=== PATIENT | male | born 1970 | race Asian ===

== ENCOUNTER 2020-10-23 12:42 | Emergency (ER) | payer MEDICAID ==
[~2020-10-23] VITALS: Ht 167.6 cm; Wt 70.5 kg
[2020-10-23] MEDS ORDERED: morphine 4 MG/ML inj SYRINge IM ONE (13:35)
[2020-10-23] MEDS ORDERED: ondansetron 4mg rapidly disintigrating tab PO ONE (13:35)
[2020-10-23] MEDS ORDERED: morphine 4 MG/ML inj SYRINge IV ONE (15:10)
[2020-10-23] MEDS ORDERED: ondansetron/PF 4mg/2ml inj IV ONE (15:30)
[2020-10-23] MEDS ORDERED: MIDAZolam 5mg/ml 2ml vial IV ONE (15:30)
[2020-10-23] MEDS ORDERED: fentaNYL/PF 50MCG/1 ML 2ML syringe IV ONE (15:30)
[2020-10-23] MEDS ORDERED: etomidate 2mg/ml inj. IV ONE (15:30)
[2020-10-23] MEDS ORDERED: POLY17PO10 PO (16:42)
[2020-10-23] MEDS ORDERED: DOCU-149 PO (16:42)
[2020-10-23 18:01] VITALS: BP 156/97
== END 2020-10-23 18:03 | disposition home or self-care (01) ==
LOC: ER 12:43
DX: K62.3 Rectal prolapse (principal); K92.1 Melena; Z79.899 Other long term (current) drug therapy
CPT/HCPCS: 74176; 94799; 96372; 96374; 96375; 99152; 99153; 99285; J2250; J2270; J2405; J3010; 94760

== ENCOUNTER 2022-10-02 21:26 | Inpatient (IN) | payer MEDICAID ==
[~2022-10-02] VITALS: Ht 167.6 cm; Wt 74.8 kg
[~2022-10-02 21:26] MED LIST: DOCU-149 PO
[2022-10-02 21:45] LABS: EOSINOPHILS # (AUTO) 0.1 X10'3 (0-0.9); LYMPHOCYTES # (AUTO) 2.9 X10'3 (1.1-4.8); WHITE BLOOD COUNT 6.5 X10'3 (4.5-11.0)
[2022-10-02 21:47] LABS: BASOPHILS % (AUTO) 0.4 % (0-1); EOSINOPHILS % (AUTO) 1.2 % (0-6); LYMPHOCYTES % (AUTO) 43.9 % (21-51); MEAN PLATELET VOLUME 8.2 FL (7.4-10.4); MONOCYTES # (AUTO) 0.5 X10'3 (0-0.9); MONOCYTES % (AUTO) 8.1 % (2-12); NEUTROPHILS % (AUTO) 46.4 % (42-75); PLATELET COUNT 399 X10'3 (140-440)
[2022-10-02 22:02] LABS: ALANINE AMINOTRANSFERASE 23 U/L (12-78); ALBUMIN 3.3 G/DL (3.4-5.0); ALBUMIN/GLOBULIN RATIO 0.8 (1.1-1.5); ALKALINE PHOSPHATASE 84 IU/L (46-116); ANION GAP 6 (8-16); ASPARTATE AMINO TRANSFERASE 11 U/L (10-37); BILIRUBIN,TOTAL 0.4 MG/DL (0.1-1.0); BLOOD UREA NITROGEN 14 MG/DL (7-18); BUN/CREATININE RATIO 12.2 (5.4-32.0); CALCIUM 8.3 MG/DL (8.5-10.1); CHLORIDE 107 MMOL/L (99-107); CREATININE 1.15 MG/DL (0.60-1.10); GLUCOSE 153 MG/DL (70-104); POTASSIUM 4.1 MMOL/L (3.5-5.1); SODIUM 141 MMOL/L (135-145); TOTAL CARBON DIOXIDE 27.9 MMOL/L (24-32); TOTAL PROTEIN 7.2 G/DL (6.4-8.2); eGFR 67 ML/MIN
[2022-10-02 22:24] LABS: HEMOGLOBIN 6.3 g/dl (14.0-17.9)
[2022-10-02 22:25] LABS: HEMATOCRIT 21.1 % (42.0-52.0); MEAN CORPUSCULAR HEMOGLOBIN 15.3 PG (27.0-31.0); MEAN CORPUSCULAR VOLUME 50.8 FL (78-98); RED BLOOD COUNT 4.16 X10'6 (4.70-6.10)
[2022-10-02 22:26] LABS: RED CELL DISTRIBUTION WIDTH 20.8 % (11.5-14.5)
[2022-10-02] MEDS ORDERED: normal saline 1000ml 1,000 ML IV ONE (22:35)
[2022-10-02 22:51] LABS: LIPASE 221 U/L (73-393); MAGNESIUM 2.2 MG/DL (1.5-2.4)
[2022-10-02] MEDS ORDERED: ASPI-1265 PO (22:58)
[2022-10-02 22:59] LABS: ETHANOL < 0.010 GM/DL (0.0-0.010)
[2022-10-02 23:11] LABS: APTT 23 SECONDS (22-32)
[2022-10-02 23:15] LABS: ANISOCYTOSIS 3+; PLATELET ESTIMATE NORMAL; TOTAL CELLS COUNTED 100
[2022-10-02] MEDS ORDERED: pantoprazole 40mg IV 80 MG in normal saline 100ml IV soln 100 ML IV ONE (23:15)
[2022-10-02 23:16] LABS: MICROCYTOSIS 3+
[2022-10-02 23:17] LABS: ELLIPTOCYTES 2+; HYPOCHROMASIA 3+; SCHISTOCYTES FEW; SMUDGE CELLS 1+
[2022-10-02 23:18] LABS: TEAR DROP CELLS FEW
[2022-10-02 23:28] LABS: ABSOLUTE RETICS # < 6000 /CUMM (23000-93000); RETICULOCYTE % (AUTO) 2.6 % (0.5-1.5)
[2022-10-03] VITALS (10 sets, daily range): BP systolic 108–176; BP diastolic 60–105
[2022-10-03] MEDS ORDERED: metoprolol tartrate 50mg tablet PO STA (00:34)
[2022-10-03] MEDS ORDERED: metoprolol tartrate 1mg/ml inj IV ONE (00:35)
[2022-10-03] MEDS ORDERED: mag hydrox/Alum hydrox/simeth 30ml oral suspension PO PRN (00:50)
[2022-10-03] MEDS ORDERED: potassium Cl 40MEQ/1/2NS 520ml 520 ML IV PRN (00:50)
[2022-10-03] MEDS ORDERED: ondansetron/PF 4mg/2ml inj IV PRN (00:50)
[2022-10-03] MEDS ORDERED: magnesium hydroxide 30ml (MOM) UD suspension PO PRN (00:50)
[2022-10-03] MEDS ORDERED: magnesium Cl slow-release 64mg tablet PO PRN (00:50)
[2022-10-03] MEDS ORDERED: potassium Cl 20 mEq SR tablet PO PRN ×2 (00:50)
[2022-10-03] MEDS ORDERED: magnesium 4gm in 100ml NS 100 ML IV PRN (00:50)
[2022-10-03] MEDS: normal saline 1000ml 1,000 ML IV SCH ×2 (00:52→20:51)
--- NOTE | 2022-10-03 05:47 | NUR ---
AM labs drawn and sent by display card writer.
[2022-10-03 06:10] LABS: MAGNESIUM 2.2 MG/DL (1.5-2.4)
[2022-10-03 06:35] LABS: BASOPHILS # (AUTO) 0.1 X10'3 (0-0.2); BASOPHILS % (AUTO) 0.8 % (0-1); EOSINOPHILS # (AUTO) 0.1 X10'3 (0-0.9); EOSINOPHILS % (AUTO) 1.9 % (0-6); HEMOGLOBIN 8.3 g/dl (14.0-17.9); LYMPHOCYTES # (AUTO) 2.9 X10'3 (1.1-4.8); LYMPHOCYTES % (AUTO) 38.8 % (21-51); MEAN CORPUSCULAR HEMOGLOBIN 17.6 PG (27.0-31.0); MEAN CORPUSCULAR HGB CONC 29.7 g/dL (33.0-36.5); MEAN CORPUSCULAR VOLUME 59.2 FL (78-98); MEAN PLATELET VOLUME 8.5 FL (7.4-10.4); MONOCYTES # (AUTO) 0.6 X10'3 (0-0.9); MONOCYTES % (AUTO) 7.9 % (2-12); NEUTROPHILS # (AUTO) 3.8 X10'3 (1.8-7.7); NEUTROPHILS % (AUTO) 50.6 % (42-75); PLATELET COUNT 374 X10'3 (140-440); RED BLOOD COUNT 4.72 X10'6 (4.70-6.10); RED CELL DISTRIBUTION WIDTH 30.7 % (11.5-14.5); WHITE BLOOD COUNT 7.6 X10'3 (4.5-11.0)
[2022-10-03] MEDS ORDERED: PERFLUTREN PROTEIN-A MICROSPHR (Optison) 0.22 MG/ML 3ML VIAL IV ONE (07:00)
[2022-10-03] MEDS: K and/or MAG REPLACEMENT MC SCH ×2 (08:00→19:01)
[2022-10-03] MEDS: docusate sod 100mg capsule PO SCH ×2 (08:32→20:48)
[2022-10-03] MEDS: aspirin 81mg tab.chew PO SCH (08:32)
[2022-10-03] MEDS ORDERED: iohexol 350MG/ML 100ml bottle IV ONE (14:10)
--- NOTE | 2022-10-03 14:41 | NUR ---
PAGER ID: [phone] MESSAGE: [id number] Candido Bloom' Did you want a new lipid panel or and ADD ON? lab is asking. Tasia 1940
[2022-10-03 15:24] LABS: CHOL/HDL RATIO 5.7 (0.00-4.99); CHOLESTEROL 250 MG/DL (0-200); HDL CHOLESTEROL 44 MG/DL (35-60); LDL CHOLESTEROL 170 MG/DL (50-100); TRIGLYCERIDES 216 MG/DL (20-135)
[2022-10-03] MEDS: acetaminophen 325mg tablet PO PRN (20:48)
[2022-10-04] VITALS (15 sets, daily range): BP systolic 104–150; BP diastolic 56–98
[2022-10-04 06:17] LABS: BASOPHILS % (AUTO) 0.7 % (0-1); EOSINOPHILS # (AUTO) 0.2 X10'3 (0-0.9); EOSINOPHILS % (AUTO) 2.8 % (0-6); HEMATOCRIT 28.5 % (42.0-52.0); HEMOGLOBIN 8.7 g/dl (14.0-17.9); LYMPHOCYTES # (AUTO) 2.7 X10'3 (1.1-4.8); LYMPHOCYTES % (AUTO) 39.8 % (21-51); MEAN CORPUSCULAR HEMOGLOBIN 17.8 PG (27.0-31.0); MEAN CORPUSCULAR HGB CONC 30.5 g/dL (33.0-36.5); MEAN CORPUSCULAR VOLUME 58.5 FL (78-98); MEAN PLATELET VOLUME 8.9 FL (7.4-10.4); MONOCYTES # (AUTO) 0.6 X10'3 (0-0.9); MONOCYTES % (AUTO) 8.1 % (2-12); NEUTROPHILS # (AUTO) 3.3 X10'3 (1.8-7.7); NEUTROPHILS % (AUTO) 48.6 % (42-75); PLATELET COUNT 373 X10'3 (140-440); RED BLOOD COUNT 4.87 X10'6 (4.70-6.10); RED CELL DISTRIBUTION WIDTH 30.3 % (11.5-14.5); WHITE BLOOD COUNT 6.9 X10'3 (4.5-11.0)
--- NOTE | 2022-10-04 06:25 | NUR ---
Problems reprioritized. Patient report given, questions answered & plan of care reviewed with JAN Francisco.
[2022-10-04 06:32] LABS: ALANINE AMINOTRANSFERASE 20 U/L (12-78); ALBUMIN 3.1 G/DL (3.4-5.0); ALBUMIN/GLOBULIN RATIO 0.8 (1.1-1.5); ALKALINE PHOSPHATASE 88 IU/L (46-116); ANION GAP 5 (8-16); ASPARTATE AMINO TRANSFERASE 21 U/L (10-37); BILIRUBIN,TOTAL 0.6 MG/DL (0.1-1.0); BLOOD UREA NITROGEN 21 MG/DL (7-18); BUN/CREATININE RATIO 19.8 (5.4-32.0); CALCIUM 8.5 MG/DL (8.5-10.1); CHLORIDE 106 MMOL/L (99-107); CREATININE 1.06 MG/DL (0.60-1.10); GLUCOSE 119 MG/DL (70-104); MAGNESIUM 2.1 MG/DL (1.5-2.4); SODIUM 139 MMOL/L (135-145); TOTAL CARBON DIOXIDE 27.6 MMOL/L (24-32); eGFR 74 ML/MIN
[2022-10-04 07:12] LABS: % IRON SATURATION 4 % (11-46); IRON 16 UG/DL (53-167); TOTAL IRON BINDING CAPACITY 434 UG/DL (259-388)
--- NOTE | 2022-10-04 07:43 | NUR ---
PAGER ID: [phone] MESSAGE: lashay hernandez [phone] re: francisca, po [phone],. pt requesting tylenol for headache, thank you
[2022-10-04] MEDS: docusate sod 100mg capsule PO SCH ×2 (07:49→20:47)
[2022-10-04] MEDS ORDERED: acetaminophen 325mg tablet PO PRN (07:50)
[2022-10-04] MEDS: K and/or MAG REPLACEMENT MC SCH ×2 (07:53→20:00)
[2022-10-04] MEDS: aspirin 81mg tab.chew PO SCH (08:00)
[2022-10-04 08:54] LABS: ANISOCYTOSIS 3+; MICROCYTOSIS 3+; PLATELET ESTIMATE NORMAL; TOTAL CELLS COUNTED 100
[2022-10-04 08:55] LABS: HYPOCHROMASIA 2+; POLYCHROMASIA FEW; SCHISTOCYTES FEW
[2022-10-04 08:56] LABS: ELLIPTOCYTES 1+
[2022-10-04] MEDS: normal saline 1000ml 1,000 ML IV SCH (10:10)
--- NOTE | 2022-10-04 10:40 | NUR ---
Student documentation: I have reviewed and agree with all interventions, assessments performed and documented by Maryam student nurse.
[2022-10-04] MEDS ORDERED: fentaNYL/PF 50MCG/1 ML 2ML syringe ONE (14:45)
[2022-10-04] MEDS ORDERED: MIDAZolam 1 MG/ML 5ML VIAL ONE (14:45)
[2022-10-04] MEDS ORDERED: LIDOcaine Viscous 15ml cup ONE (14:46)
--- NOTE | 2022-10-04 17:40 | NUR ---
pt independent with ADLs, voids in toilet. no stool sample yet. pt back from EGD, clear liquid diet ordered. will continue to monitor pt
[2022-10-04] MEDS: pantoprazole 40mg Tablet.DR PO SCH (20:47)
[2022-10-04] MEDS: acetaminophen 325mg tablet PO PRN (20:56)
[2022-10-04 22:18] LABS: OCCULT BLOOD STOOL NEGATIVE (Neg)
[2022-10-05] MEDS: normal saline 1000ml 1,000 ML IV SCH (02:50)
[2022-10-05 03:00] VITALS: BP 124/65
[2022-10-05 06:00] VITALS: BP 128/76
[2022-10-05 06:30] LABS: BASOPHILS % (AUTO) 0.5 % (0-1); EOSINOPHILS # (AUTO) 0.2 X10'3 (0-0.9); EOSINOPHILS % (AUTO) 2.3 % (0-6); HEMATOCRIT 28.4 % (42.0-52.0); HEMOGLOBIN 8.6 g/dl (14.0-17.9); LYMPHOCYTES # (AUTO) 2.2 X10'3 (1.1-4.8); LYMPHOCYTES % (AUTO) 31.1 % (21-51); MEAN CORPUSCULAR HEMOGLOBIN 17.6 PG (27.0-31.0); MEAN CORPUSCULAR HGB CONC 30.1 g/dL (33.0-36.5); MEAN CORPUSCULAR VOLUME 58.4 FL (78-98); MEAN PLATELET VOLUME 8.6 FL (7.4-10.4); MONOCYTES # (AUTO) 0.6 X10'3 (0-0.9); MONOCYTES % (AUTO) 8.8 % (2-12); NEUTROPHILS # (AUTO) 4.1 X10'3 (1.8-7.7); NEUTROPHILS % (AUTO) 57.3 % (42-75); PLATELET COUNT 345 X10'3 (140-440); RED BLOOD COUNT 4.87 X10'6 (4.70-6.10); RED CELL DISTRIBUTION WIDTH 30.6 % (11.5-14.5); WHITE BLOOD COUNT 7.1 X10'3 (4.5-11.0)
[2022-10-05 06:44] LABS: ALANINE AMINOTRANSFERASE 19 U/L (12-78); ALBUMIN 3.2 G/DL (3.4-5.0); ALBUMIN/GLOBULIN RATIO 0.8 (1.1-1.5); ALKALINE PHOSPHATASE 89 IU/L (46-116); ANION GAP 5 (8-16); ASPARTATE AMINO TRANSFERASE 16 U/L (10-37); BILIRUBIN,TOTAL 1.1 MG/DL (0.1-1.0); BLOOD UREA NITROGEN 13 MG/DL (7-18); BUN/CREATININE RATIO 13.8 (5.4-32.0); CALCIUM 8.5 MG/DL (8.5-10.1); CHLORIDE 104 MMOL/L (99-107); CREATININE 0.94 MG/DL (0.60-1.10); GLUCOSE 98 MG/DL (70-104); POTASSIUM 3.6 MMOL/L (3.5-5.1); SODIUM 138 MMOL/L (135-145); TOTAL CARBON DIOXIDE 29.2 MMOL/L (24-32); eGFR 85 ML/MIN
[2022-10-05] MEDS: docusate sod 100mg capsule PO SCH (07:13)
[2022-10-05] MEDS: pantoprazole 40mg Tablet.DR PO SCH (07:13)
[2022-10-05] MEDS: aspirin 81mg tab.chew PO SCH (07:13)
[2022-10-05] MEDS: K and/or MAG REPLACEMENT MC SCH (07:14)
[2022-10-05] MEDS ORDERED: PANT40SU2 PO (07:24)
[2022-10-05] MEDS ORDERED: clopidogrel 75mg tablet PO SCH (08:20)
[2022-10-05] MEDS ORDERED: atorvastatin 20mg tablet PO SCH (08:20)
[2022-10-05] MEDS ORDERED: metoprolol tartrate 25mg tablet PO SCH (08:20)
[2022-10-05 09:59] VITALS: BP 124/89
--- NOTE | 2022-10-05 12:39 | NUR ---
attempted to contact NEUROLOGY TEACHER x2 regarding discharge medications. no response. MD aware however she states only reccomendation is aspirin. charge nurse aware. will proceed with discharge
--- NOTE | 2022-10-05 13:02 | NUR ---
patient discharged in stable condition to home. belongings sent with pt. ivs removed tips intact no complications.pt eduated on discharge follow up/medication.
[2022-10-05] MEDS ORDERED: ATOR40TA PO (13:28)
[2022-10-05] MEDS ORDERED: CLOP-32 PO (13:28)
[2022-10-05] MEDS ORDERED: LOP25T PO (13:28)
[2022-10-06 19:35] LABS: A/G RATIO 0.8 (0.7-1.7); ALBUMIN 2.8 g/dL (2.9-4.4); BETA GLOBULIN 1.3 g/dL (0.7-1.3); GAMMA GLOBULIN 1.4 g/dL (0.4-1.8); GLOBULIN, TOTAL 3.7 g/dL (2.2-3.9); M-SPIKE Not Observed g/dL (Not Observed); PROTEIN, TOTAL, SERUM 6.5 g/dL (6.0-8.5)
== END 2022-10-05 13:02 | disposition home or self-care (01) | DRG 190 ==
LOC: ER 21:27 → ED HOLD 10-03 00:50 → ORTHO 4S 10-03 07:48
PROVIDERS: ADMIT Internal Medicine; ATTEND Internal Medicine
PROC: 30233N1 Transfusion of Nonautologous Red Blood Cells into Peripheral Vein, Percutaneous Approach (ICD-10-PCS; principal; 2022-10-03)
PROC: 0DB98ZX Excision of Duodenum, Via Natural or Artificial Opening Endoscopic, Diagnostic (ICD-10-PCS; 2022-10-04)
PROC: 0DB68ZX Excision of Stomach, Via Natural or Artificial Opening Endoscopic, Diagnostic (ICD-10-PCS; 2022-10-04)
DX: I21.4 Non-ST elevation (NSTEMI) myocardial infarction (principal); K26.4 Chronic or unspecified duodenal ulcer with hemorrhage; D50.9 Iron deficiency anemia, unspecified; E78.00 Pure hypercholesterolemia, unspecified; K29.71 Gastritis, unspecified, with bleeding; I10 Essential (primary) hypertension; I25.10 Atherosclerotic heart disease of native coronary artery without angina pectoris; Z79.82 Long term (current) use of aspirin; Z82.49 Family history of ischemic heart disease and other diseases of the circulatory system; Z95.5 Presence of coronary angioplasty implant and graft
CPT/HCPCS: 36415; 36430; 43239; 71045; 71275; 80053; 80061; 80320; 82272; 83540; 83550; 83690; 83735; 83880; 84132; 84155; 84165; 84484; 85007; 85025; 85045; 85610; 85730; 86885; 86900; 86901; 86920; 87081; 93005; 93306; 99152; 99285; A4620; C9113; G0378; J2250; J3010; J3490; J7030; P9016; Q9967

== ENCOUNTER 2023-01-10 06:29 | Day surgery (SDC) | payer MEDICAID ==
[~2023-01-10] VITALS: Ht 167.6 cm; Wt 77.3 kg
[~2023-01-10 06:29] MED LIST changes: +ASPI-1265 PO; +CLOP-32 PO; -DOCU-149 PO; +LOP25T PO; +PANT40SU2 PO
[2023-01-10 06:38] VITALS: BP 132/78
[2023-01-10] MEDS ORDERED: LOP25T PO (06:51)
[2023-01-10] MEDS ORDERED: LIDOcaine Viscous 15ml cup ONE (07:28)
[2023-01-10] MEDS ORDERED: fentaNYL/PF 50MCG/1 ML 2ML syringe ONE (07:28)
[2023-01-10] MEDS ORDERED: MIDAZolam 1 MG/ML 5ML VIAL ONE (07:28)
[2023-01-10 09:02] VITALS: BP 117/71
[2023-01-10 09:12] VITALS: BP 108/58
[2023-01-10 09:22] VITALS: BP 117/78
[2023-01-10 09:32] VITALS: BP 110/70
== END 2023-01-10 09:36 | disposition home or self-care (01) ==
LOC: GI LAB 06:29
PROVIDERS: ATTEND Internal Medicine Gastroenterology
DX: D50.9 Iron deficiency anemia, unspecified (principal); K57.30 Diverticulosis of large intestine without perforation or abscess without bleeding; K29.50 Unspecified chronic gastritis without bleeding; K20.80 Other esophagitis without bleeding; K22.10 Ulcer of esophagus without bleeding; E78.5 Hyperlipidemia, unspecified; Z79.899 Other long term (current) drug therapy; Z95.5 Presence of coronary angioplasty implant and graft
CPT/HCPCS: 43239; 45378; 99152; 99153; J2250; J3010; J7030; Z7512; A4620